=== PATIENT | male | born 1955 | race Caucasian/White ===

== ENCOUNTER 2018-01-22 17:25 | Emergency (ER) | payer SELFPAY ==
[~2018-01-22] VITALS: Ht 188 cm; Wt 121.0 kg
[2018-01-22 17:31] VITALS: BP 185/84; PULSE 76; RESP 16; TEMP 97.9; O2SAT 97
[2018-01-22] MEDS ORDERED: KETOROLAC TROMETHAMINE 60 MG/2 ML (IM) VIAL IM ONE (18:30)
[2018-01-22] MEDS ORDERED: MORPHINE SULFATE 2 MG/ML INJ IM ONE (18:30)
[2018-01-22] MEDS ORDERED: ONDANSETRON ODT 4 MG TAB PO ONE (18:30)
[2018-01-22] MEDS ORDERED: GABA300C5 PO (18:40)
[2018-01-22] MEDS ORDERED: PENT500C2 PO (18:40)
--- NOTE | 2018-01-22 18:41 | PD ---
HPI Chief Complaint: Back/ Neck Pain or Injury Time Seen by Provider: 18:17 Travel History International Travel<30 days: No Contact w/Intl Traveler<30days: No Traveled to known affect area: No History of Present Illness HPI 62-year-old male that presents to the ED for evaluation of pain to his right leg and numbness to his leg. Per patient he has a history of chronic back problems and had surgery last February in his lumbar spine. Per patient his been having chronic issues with it but has had no discomfort in the past until the past 3-5 days. Per patient also he did was get up from a picnic table and extended his leg and developed this pain. Per patient is not been able to get any improvement of symptoms with [id number] remedies. He chronically does take pain medication but per patient she did not bring in to [place] as he has had no issues. He says he has no allergies to medication. No falls or other injuries. Denies any fevers chills or sweats. No back pain or neck pain but most of the pain appears to be on the right hip radiating down the leg. Denies any discoloration of the skin. No bowel movement or urinary issues. PFSH Past Medical History Hx Anticoagulant Therapy: No Diabetes: No Social History Alcohol Use: No Tobacco Use: No Substance Use: No Allergies-Medications (Allergen,Severity, Reaction): Coded Allergies: No Known Allergies (Unverified , 01/22/18) Reported Meds & Prescriptions Reported Meds & Active Scripts Active Robaxin (Methocarbamol) 500 Mg Tab 500 Mg PO QID Prednisone 20 Mg Tab 20 Mg PO BID [address] (Diclofenac Sodium) 75 Mg Tabdr 75 Mg PO BID PRN Hydrocodone-Acetaminophen 5-325 mg Tab 1 Tab PO Q6H PRN Reported Pentasa (Mesalamine) 500 Mg Caper 1,000 Mg PO TID Gabapentin 300 Mg Cap 300 Mg PO BID Review of Systems Except as stated in HPI: all other systems reviewed are Neg Physical Exam Narrative GENERAL: SKIN: Warm and dry. HEAD: Atraumatic. Normocephalic. EYES: Pupils equal and round. No scleral icterus. No injection or drainage. ENT: No nasal bleeding or discharge. Mucous membranes pink and moist. Tongue is midline. No uvula deviation. NECK: Trachea midline. No JVD. CARDIOVASCULAR: Regular rate and rhythm. RESPIRATORY: No accessory muscle use. Clear to auscultation. Breath sounds equal bilaterally. GASTROINTESTINAL: Abdomen soft, non-tender, nondistended. Hepatic and splenic margins not palpable. MUSCULOSKELETAL: Extremities without clubbing, cyanosis, or edema. No obvious deformities. Full range of motion of the upper and lower extremities bilaterally with exception of the right hip and has pain with flexion and extension. Patient able to do it however. Motor is lumbar, thoracic, cervical spine tenderness to palpation. Patient does have surgical scar on the lumbar spine. 2+ pulses bilaterally. Sensation appears to be intact. NEUROLOGICAL: Awake and alert. No obvious cranial nerve deficits. Motor grossly within normal limits. Five out of 5 muscle strength in the arms and legs. Normal speech. PSYCHIATRIC: Appropriate mood and affect; insight and judgment normal. Data Data Last Documented VS Vital Signs Date Time Temp Pulse Resp B/P (MAP) Pulse Ox O2 Delivery O2 Flow Rate FiO2 01/22/18 17:31 97.9 76 16 185/84 (117) [address] Lumb Spine W/O Contrast (01/22/18 18:22) Femur (Ap & Lat/2vws) (01/22/18 18:22) Ketorolac Inj (Toradol Inj) (01/22/18 18:30) Morphine Inj (Morphine Inj) (01/22/18 18:30) Ondansetron Odt (Zofran Odt) (01/22/18 18:30) Ed Discharge Order (01/22/18 20:23) MDM Medical Decision Making Medical Screen Exam Complete: Yes Emergency Medical Condition: Yes Medical Record Reviewed: Yes Interpretation(s) Last Impressions Lumbar Spine CT 01/22/181821 Signed Impressions: Service Date/Time: Monday, January 22, 2018 19:21 - CONCLUSION: 1. Surgical and degenerative changes as above. 2. Mild right and moderate to severe left foraminal stenosis at L3/L4. 3. Moderate to severe right and moderate left foraminal stenosis at L5/S1. 4. No fracture or acute appearing malalignment. Ben Tejada MD Femur X-Ray 01/22/181821 Signed Impressions: Service Date/Time: Monday, January 22, 2018 19:08 - CONCLUSION: Intact femur. Mild to moderate right hip osteoarthritis. Ben Tejada MD Differential Diagnosis Sciatica versus muscle strain versus muscle spasm versus acute on chronic pain versus chronic pain Narrative Course 62-year-old male that presents to the ED for evaluation of right-sided leg pain and numbness. Patient was properly examined and was found to have signs and symptoms consistent appears to be lumbar radiculopathy. Possibly from sciatica. Patient does have a history of chronic back problems. At this time I recommend imaging. Patient was given IM doses of pain medication. Imaging showed no sign of acute injury but definitely a lot of chronic changes. Patient does have moderate stenosis. Understand patient neurologically intact. This appears to be chronic. Case was discussed in my attending Dr. camacho who agrees with plan. Patient had relief of discomfort with medications given here. Patient will be sent home with prescription for Lortab, Flexeril, Robaxin and prednisone. Told to follow up closely with PCP. See ED worsening symptoms. Diagnosis Primary Impression: Lumbar radiculopathy, acute Patient Instructions: General Instructions, Narcotic given in the ED Additional Instructions: Take medications as prescribed. Follow-up with PCP. See ED for any worsening symptoms. Do not drink or drive while taking pain medication. Apply ice or heat as needed for pain Med/Other Pt SpecificInfo: Prescription(s) given Scripts Methocarbamol (Robaxin) 500 Mg Tab 500 MG PO QID for Muscle Spasm, #15 TAB 0 Refills Prov: Jeffrey Richards MD 01/22/18 Prednisone (Prednisone) 20 Mg Tab 20 MG PO BID for 5 Days, #10 TAB 0 Refills Prov: Jeffrey Richards MD 01/22/[address] (Diclofenac Sodium DR) 75 Mg Tabdr 75 MG PO BID Y for PAIN SCALE 1 TO 10, #20 TAB 0 Refills Prov: Jeffrey Richards MD 01/22/18 Hydrocodone-Acetaminophen (Hydrocodone-Acetaminophen) 5-325 mg Tab 1 TAB PO Q6H Y for PAIN, #12 TAB 0 Refills Prov: Jeffrey Richards MD 01/22/18 Disposition: 01 DISCHARGE HOME Condition: Stable Buster Constantino Jan 22, 2018 18:41
--- NOTE | 2018-01-22 19:30 | RADRPT ---
EXAM DATE/TIME: 01/22/2018 19:08 [facility] COMPARISON: No previous studies available for comparison. INDICATIONS : Right femur and hip pain. No known injury. Patient states pain radiates from back down his right leg . MEDICAL HISTORY : None. SURGICAL HISTORY : None. ENCOUNTER: Initial ACUITY: 3 days PAIN SCORE: 5/10 LOCATION: Right femur. FINDINGS: No acute fracture or subluxation seen of the right femur. There is mild to moderate osteoarthritis of the right hip. CONCLUSION: Intact femur. Mild to moderate right hip osteoarthritis. Ben Tejada MD on January 22, 2018 at 19:26 Board Certified Radiologist. This report was verified electronically.
--- NOTE | 2018-01-22 20:03 | RADRPT ---
EXAM DATE/TIME: 01/22/2018 19:21 [facility] COMPARISON: No previous studies available for comparison. INDICATIONS : Low back and right leg pain. RADIATION DOSE: 40.19 CTDIvol (mGy) MEDICAL HISTORY : None SURGICAL HISTORY : None. ENCOUNTER: Initial ACUITY: 2 days PAIN SCALE: 10/10 LOCATION: Right back and leg TECHNIQUE: Volumetric scanning of the lumbar spine was performed. Multiplanar reconstructions in the sagittal, coronal and oblique axial planes were performed. Using automated exposure control and adjustment of the mA and/or kV according to patient size, radiation dose was kept as low as reasonably achievable t o obtain optimal diagnostic quality images. DICOM format image data is available electronically for review and comparison. FINDINGS: VERTEBRAE: Normal vertebral body height. ALIGNMENT: No evidence of subluxation. Previous L3 laminectomy and L4/L5 fusion. T12-L1: The thecal sac has a normal diameter. No evidence of disc bulge or protrusion. The neural foramina are patent bilaterally. L1-L2: The disc is desiccated and has mild loss of height with vacuum phenomena. There is diffuse bulging of the anulus and mild bilateral facet osteoarthritis. No significant foraminal or spinal stenosis. L2-L3: The disc has mild loss of height. There is a small, broad/diffuse disc osteophyte complex and mild bi lateral facet osteoarthritis. There is mild to moderate left foraminal stenosis. L3-L4: The disc has mild to moderate loss of height. There is moderate bilateral facet osteoarthritis. Previ ous laminectomy without significant recurrent or residual spinal stenosis. There is mild right and mo derate to severe left foraminal stenosis. L4-L5: Previous fusion. No evidence of significant recurrent or residual foraminal or spinal stenosis. L5-S1: The disc has severe loss of height. Circumferential but especially right paracentral and foraminal di sc osteophyte complex present and there is severe bilateral facet osteoarthritis with hypertrophic monica ne formation. There is moderate to severe right and moderate left foraminal stenosis. CONCLUSION: 1. Surgical and degenerative changes as above. 2. Mild right and moderate to severe left foraminal stenosis at L3/L4. 3. Moderate to severe right and moderate left foraminal stenosis at L5/S1. 4. No fracture or acute appearing malalignment. Ben Tejada MD on January 22, 2018 at 19:56 Board Certified Radiologist. This report was verified electronically.
[2018-01-22] MEDS ORDERED: PRED20 PO (20:23)
[2018-01-22] MEDS ORDERED: HYDR-3516 PO (20:23)
[2018-01-22] MEDS ORDERED: ROBA500T PO (20:23)
[2018-01-22] MEDS ORDERED: DICL75TA PO (20:23)
== END 2018-01-22 20:42 | disposition home or self-care (01) ==
LOC: PHEFT 17:25
DX: M54.16 Radiculopathy, lumbar region (principal); M16.11 Unilateral primary osteoarthritis, right hip; M62.838 Other muscle spasm; R20.0 Anesthesia of skin
CPT/HCPCS: 72131; 73552; 96372; 99284; J1885; J2270